=== PATIENT | male | born 1990 | race Caucasian/White ===

== ENCOUNTER 2022-09-07 12:35 | Emergency (ER) | payer BC, OTHER ==
[2022-09-07] MEDS ORDERED: Sodium Chloride 0.9% 1,000 ML IV ONE (12:51)
[2022-09-07] MEDS ORDERED: diphenhydrAMINE 50 MG/ML SDV IVPUSH ONE (12:51)
[2022-09-07] MEDS ORDERED: methylPREDNISolone Sodium Succinate 125 MG/2 ML SDV IVPUSH ONE (12:51)
[2022-09-07] MEDS ORDERED: Famotidine 20 MG/2 ML SDV IVPUSH ONE (12:51)
== END 2022-09-07 14:31 | disposition home or self-care (01) ==
LOC: MW.ED 12:35
DX: R21 Rash and other nonspecific skin eruption (principal); T36.0X5A Adverse effect of penicillins, initial encounter; Z88.0 Allergy status to penicillin
CPT/HCPCS: 96361; 96374; 96375; 99283; J1200; J2930; J3490; J7030; 99284